=== PATIENT | female | born 1950 | race Caucasian/White ===

== ENCOUNTER 2019-01-01 07:47 | Emergency (ER) | payer OTHER ==
[~2019-01-01] VITALS: Ht 162.6 cm; Wt 73.9 kg
[~2019-01-01 07:47] MED LIST: FENOFIBRATE48 MG; METFORMIN HCL500 MG; TRICON CAPSULE1 EACH
[2019-01-01] MEDS ORDERED: CIPRO500 MG PO (10:05)
== END 2019-01-01 10:08 | disposition home or self-care (01) ==
LOC: ER 07:47
DX: N39.0 Urinary tract infection, site not specified (principal)

== ENCOUNTER 2019-04-05 14:46 | Emergency (ER) | payer OTHER ==
[~2019-04-05] VITALS: Ht 162.6 cm; Wt 68.0 kg
[~2019-04-05 14:46] MED LIST changes: +CIPRO500 MG PO
[2019-04-05] MEDS ORDERED: FORTAMET500 MG PO (15:25)
[2019-04-05] MEDS ORDERED: LEVAQUIN750 MG PO (16:02)
== END 2019-04-05 16:48 | disposition home or self-care (01) ==
LOC: ER 14:46
DX: N39.0 Urinary tract infection, site not specified (principal)